=== PATIENT | male | born 1960 | race Caucasian/White ===

== ENCOUNTER 2018-09-02 12:40 | Emergency (ER) | payer OTHER, BC ==
[2018-09-02 13:11] VITALS: BP 119/66
[2018-09-02] MEDS ORDERED: Lidocaine 1% with EPINEPHrine 1:100,000 20 ML MDV INFILT PRN (13:23)
--- NOTE | 2018-09-02 14:07 | EDM.PDOC ---
ED HPI GENERAL MEDICAL PROBLEM - General Chief Complaint: Laceration Stated Complaint: LACERATION AT WORK Time Seen by Provider: 09/02/18 13:00 Source of Information: Reports: Patient History Limitations: Reports: No Limitations - History of Present Illness INITIAL COMMENTS - FREE TEXT/NARRATIVE: cut at work when piece of metal plate slide back on top of right forearm denies any numbness tingling loss sensation coldness loss function to hand Onset: Today Duration: Minutes: Severity: Mild Associated Symptoms: Reports: No Other Symptoms Right Wrist Pain Score (Numeric/FACES): 3 - Related Data Allergies Allergy/AdvReac Type Severity Reaction Status Date / Time No Known Allergies Allergy Verified 09/02/18 13:13 Home Meds: Home Meds Albuterol [Proair HFA] 2 puff INH Q6HR PRN 05/11/14 [History] Aspirin [Adult Low Dose Aspirin EC] 1 tab PO DAILY 05/11/14 [History] Budesonide/Formoterol [Symbicort 160-4.5 Mcg Inhaler] 2 puff INH BID 05/11/14 [ History] Naproxen Sodium [Aleve] 220 mg PO ASDIRECTED PRN 05/11/14 [History] Omeprazole [Prilosec] 10 mg PO DAILY 05/11/14 [History] Sildenafil [Viagra] 50 mg PO ASDIRECTED PRN 05/11/14 [History] atorvaSTATin [Lipitor] 40 mg PO BEDTIME 05/11/14 [History] ED ROS GENERAL - Review of Systems Review Of Systems: ROS reveals no pertinent complaints other than HPI. Constitutional: Reports: No Symptoms Respiratory: Reports: No Symptoms Cardiovascular: Reports: No Symptoms Musculoskeletal: Reports: No Symptoms Skin: Reports: Other (lac to right FA ) Neurological: Reports: No Symptoms Hematologic/Lymphatic: Reports: No Symptoms (TD UTD 3 yrs ago ) ED EXAM, SKIN/RASH Exam: See Below (see below) Exam Limited By: No Limitations General Appearance: Alert, WD/WN, No Apparent Distress Neurological: Alert, Oriented, CN II-XII Intact, Normal Cognition, Normal Gait, Normal Reflexes, No Motor/Sensory Deficits Psychiatric: Normal Affect Skin: Warm, Dry, Normal Color, No Rash, Other (Hand exam NVI pos radius ulna = sensation normal adduction abduction oppistion FROM no active bleeding from site no s/s contamination ) Course - Vital Signs Last Recorded V/S: Last Vital Signs Temp 36.9 C 09/02/18 13:00 Pulse 79 09/02/18 13:00 Resp 14 09/02/18 13:00 BP 119/66 09/02/18 13:00 Pulse Ox 96 09/02/18 13:00 - Orders/Labs/Meds Orders: Active Orders 24 hr Category Date Time Status Lidocaine 1% w/EPINEPHrine [Xylocaine 1% with Med 09/02/18 13:23 Active EPINEPHrine 1:100,000] 20 ml INFILT ONETIME PRN Medication Orders Lidocaine/Epinephrine (Xylocaine 1% With Epinephrine 1:100,000) 20 ml INFILT ONETIME PRN PRN Reason: Other Last Admin: 09/02/18 13:28 Dose: 20 ml Meds: Medications Generic Name Dose Route Start Last Admin Trade Name Freq PRN Reason Stop Dose Admin Lidocaine/Epinephrine 20 ml 09/02/18 13:23 09/02/18 13:28 Xylocaine 1% With Epinephrine 1:100,000 INFILT 20 ml ONETIME PRN Administration Other Departure - Departure Time of Disposition: 14:00 Disposition: Home, Self-Care 01 Condition: Good Clinical Impression: Laceration of right forearm without complication - Discharge Information *COPY OF PRESCRIPTION DRUG MONITORING REPORT IN PATIENT CARROL: No Instructions: Wound Care, Adult Referrals: Caridad Ruiz DO [Primary Care Provider] - - Problem List & Annotations (1) Laceration of right forearm without complication SNOMED Code(s): 265042840 Code(s): S51.811A - LACERATION W/O FOREIGN BODY OF RIGHT FOREARM, INIT ENCNTR Status: Acute Current Visit: Yes - My Orders Last 24 Hours: My Active Orders 09/02/18 13:23 Lidocaine 1% w/EPINEPHrine [Xylocaine 1% with EPINEPHrine 1:100,000] 20 ml INFILT ONETIME PRN - Assessment/Plan Last 24 Hours: My Active Orders 09/02/18 13:23 Lidocaine 1% w/EPINEPHrine [Xylocaine 1% with EPINEPHrine 1:100,000] 20 ml INFILT ONETIME PRN Plan: lac apx 2cm flap x 1/2 cm area cleanesd with hebi cleans irrigated NS apx 250 ml inj 2 cc lidocaine with 27 ga local block steril field pt wound closed with 5- vicryl # 3buried closed with steri strip dressed with telfs and kerlex pt given wound instructions and need for follow up with verbal understanding
== END 2018-09-02 14:25 | disposition home or self-care (01) ==
LOC: VM.ED 12:40
DX: S51.811A Laceration without foreign body of right forearm, initial encounter (principal); Z79.899 Other long term (current) drug therapy; Z79.82 Long term (current) use of aspirin; W26.9XXA Contact with unspecified sharp object(s), initial encounter; Y99.0 Civilian activity done for income or pay
CPT/HCPCS: 12001; 99283; 99283-GF

== ENCOUNTER 2020-01-09 10:25 | Day surgery (SDC) | payer BC, OTHER ==
[~2020-01-09 10:25] MED LIST: Lactated Ringers 1,000 ML IV SCH
[2020-01-09] MEDS ORDERED: fentaNYL 100 MCG/2 ML SDV ONE (11:39)
[2020-01-09] MEDS ORDERED: Propofol 200 MG/20 ML SDV ONE ×4 (11:39→12:16)
[2020-01-09 13:11] VITALS: BP 128/72; PULSE 82
--- NOTE | 2020-01-10 09:14 | OR ---
PREOPERATIVE DIAGNOSIS: History of colon polyps. POSTOPERATIVE DIAGNOSIS: History of colon polyps. PROCEDURE PERFORMED: Colonoscopy with polypectomy. PROCEDURE DETAILS: This was done in the endoscopy suite. Sedation was given per Anesthesia. He was placed in left lateral position. First, a rectal exam was done and was normal. Scope was introduced into the rectum and slowly advanced to the rectum, sigmoid, descending, transverse, and ascending colon until the cecum was reached. Upon reaching the cecum, there was a small polyp on one of the folds just above the cecum. This was removed with a combination of loop forceps and hot biopsy forceps and sent to pathology. The scope was slowly withdrawn looking at the mucosal surfaces at the remainder of the way. At 20 cm, a second very small polyp was noted. I did remove it with the loop forceps; however, it was completely destroyed by cautery and there was no specimen present. FINAL DIAGNOSIS: Cecum polyp at 20 cm. The second was most consistent with hyperplastic polyp. Pathology pending of the first one. BKD: 01/09/2020 12:38:50 MODL: 01/09/2020 18:04:49 /[id number]
== END 2020-01-09 14:00 | disposition home or self-care (01) ==
LOC: VM.SDS 10:25
PROVIDERS: ATTEND Surgery
DX: Z12.11 Encounter for screening for malignant neoplasm of colon (principal); J44.9 Chronic obstructive pulmonary disease, unspecified; K21.9 Gastro-esophageal reflux disease without esophagitis; E78.5 Hyperlipidemia, unspecified; F32.9 Major depressive disorder, single episode, unspecified; F17.210 Nicotine dependence, cigarettes, uncomplicated; N52.9 Male erectile dysfunction, unspecified; Z89.412 Acquired absence of left great toe; Z86.010 Personal history of colon polyps; Z79.82 Long term (current) use of aspirin; Z79.899 Other long term (current) drug therapy; Z01.812 Encounter for preprocedural laboratory examination; Z20.828 Contact with and (suspected) exposure to other viral communicable diseases
CPT/HCPCS: 00811; 45384; 87635; J2704; J3010; J7120; U0002

== ENCOUNTER → 2023-02-09 | Day surgery (SDC) | payer BC ==
[~2023-02-09] MED LIST changes: +Propofol 200 MG/20 ML SDV ONE; +fentaNYL 100 MCG/2 ML SDV ONE
[2023-02-09 12:22] VITALS: BP 117/66
[2023-02-09 12:38] VITALS: PULSE 77
== END ==
LOC: VM.SDS 10:25
PROVIDERS: ATTEND Surgery
DX: Z12.11 Encounter for screening for malignant neoplasm of colon (principal); D12.3 Benign neoplasm of transverse colon; D12.6 Benign neoplasm of colon, unspecified; K63.5 Polyp of colon; F32.A Depression, unspecified; E78.5 Hyperlipidemia, unspecified; N52.9 Male erectile dysfunction, unspecified; K21.9 Gastro-esophageal reflux disease without esophagitis; J45.909 Unspecified asthma, uncomplicated; J44.9 Chronic obstructive pulmonary disease, unspecified; Z79.82 Long term (current) use of aspirin; Z88.1 Allergy status to other antibiotic agents; Z79.899 Other long term (current) drug therapy
CPT/HCPCS: 00811; 45384; J2704; J3010; J7120